=== PATIENT | female | born 1945 | race Two or more races ===

== ENCOUNTER 2021-09-26 13:55 | Inpatient (IN) | payer OTHER, MEDICARE ==
[2021-09-26] MEDS ORDERED: FUROSEMIDE 40 MG/4 ML INJECTABLE VIAL ONE ×2 (14:44→15:36)
[2021-09-26 14:48] LABS: BASO % 0.8 % (0-2.0); EOS % 3.7 % (0-4.5); HEMATOCRIT 39.3 % (32.4-45.2); HEMOGLOBIN 12.3 GM/dL (10.7-15.3); LYMPH % 15.8 % (8-40); MCH 22.7 pg (25.7-33.7); MCHC 31.3 g/dl (32.0-36.0); MEAN CELL VOLUME 72.5 fl (80-96); MEAN PLT VOLUME 9.4 fl (7.5-11.1); MONO % 6.3 % (3.8-10.2); NEUT % 73.4 % (42.8-82.8); PLATELET COUNT 245 10^3/uL (134-434); RBC 5.42 M/mm3 (3.60-5.2); RDW 16.3 % (11.6-15.6); WHITE BLOOD COUNT 8.1 K/mm3 (4.0-10.0)
[2021-09-26] MEDS ORDERED: LOSARTAN POTASSIUM 50 MG TABLET PO ONE (14:56)
[2021-09-26 14:58] LABS: ACTIVATED PTT 28.7 SECONDS (25.2-36.5); INR 1.32 (0.83-1.09); PROTHROMBIN TIME (PATIENT) 15.2 SEC (9.7-13.0)
[2021-09-26] MEDS ORDERED: FUROSEMIDE 40 MG/4 ML INJECTABLE VIAL IVPUSH ONE (14:59)
[2021-09-26] MEDS ORDERED: metoPROLOL SUCCINATE 25 MG TAB.SR.24H (FP) PO ONE (14:59)
[2021-09-26 15:12] LABS: CALCIUM 9.1 mg/dL (8.5-10.1)
[2021-09-26 15:13] LABS: ALBUMIN 3.4 g/dl (3.4-5.0); BLOOD UREA NITROGEN 15.7 mg/dL (7-18)
[2021-09-26 15:16] LABS: CREATININE 0.6 mg/dL (0.55-1.3)
[2021-09-26 15:17] LABS: BILIRUBIN,TOTAL 0.9 mg/dL (0.2-1); TOT PROT 6.6 g/dl (6.4-8.2)
[2021-09-26] MEDS ORDERED: LOSARTAN POTASSIUM 50 MG TABLET ONE (15:36)
[2021-09-26] MEDS ORDERED: metoPROLOL SUCCINATE 25 MG TAB.SR.24H (FP) ONE (15:36)
[2021-09-26] MEDS: APIXABAN 5 MG TABLET PO SCH (21:28)
[2021-09-27 03:03] VITALS: BMI 36.9
[2021-09-27 07:46] LABS: HEMATOCRIT 39.2 % (32.4-45.2); HEMOGLOBIN 12.4 GM/dL (10.7-15.3); MCH 22.9 pg (25.7-33.7); MCHC 31.5 g/dl (32.0-36.0); MEAN CELL VOLUME 72.6 fl (80-96); MEAN PLT VOLUME 9.1 fl (7.5-11.1); PLATELET COUNT 249 10^3/uL (134-434); RDW 15.7 % (11.6-15.6)
[2021-09-27 08:08] LABS: CALCIUM 9.2 mg/dL (8.5-10.1)
[2021-09-27 08:09] LABS: ALBUMIN 3.4 g/dl (3.4-5.0); IRON SERUM 31 ug/dL (50-175)
[2021-09-27 08:10] LABS: TOTAL IRON BINDING CAPACITY 410 ug/dL (250-450)
[2021-09-27 08:12] LABS: CREATININE 0.6 mg/dL (0.55-1.3)
[2021-09-27 08:13] LABS: BILIRUBIN,TOTAL 0.9 mg/dL (0.2-1); TOT PROT 6.6 g/dl (6.4-8.2)
[2021-09-27] MEDS: APIXABAN 5 MG TABLET PO SCH ×2 (09:21→21:17)
[2021-09-27] MEDS: LOSARTAN POTASSIUM 50 MG TABLET PO SCH (09:21)
[2021-09-27] MEDS: metoPROLOL SUCCINATE 25 MG TAB.SR.24H (FP) PO SCH (09:21)
[2021-09-27] MEDS: FUROSEMIDE 40 MG/4 ML INJECTABLE VIAL IVPUSH SCH (10:00)
[2021-09-27] MEDS ORDERED: IRON SUCROSE INJECTION 200 MG in SODIUM CHLORIDE 90 ML IVPB ONE (13:15)
[2021-09-27] MEDS ORDERED: FUROSEMIDE 40 MG/4 ML INJECTABLE VIAL IVPUSH ONE ×2 (14:42)
[2021-09-27 17:20] LABS: EPI CELLS 2 /uL (0-25.1); HYALINE CASTS 0 /uL (0-3.1); URINE APPEARANCE CLEAR; URINE BACTERIA 3 /uL (0-1359); URINE BILIRUBIN NEGATIVE (NEGATIVE); URINE COLOR YELLOW; URINE GLUCOSE (UA) NEGATIVE (NEGATIVE); URINE KETONE NEGATIVE (NEGATIVE); URINE LEUK ESTERASE TRACE (NEGATIVE); URINE NITRITE NEGATIVE (NEGATIVE); URINE PROTEIN NEGATIVE (NEGATIVE); URINE RBC 5 /uL (0-23.9); URINE WBC 4 /uL (0-25.8)
[2021-09-27] MEDS: ACETAMINOPHEN 325 MG TABLET (FP) PO PRN (22:51)
[2021-09-28] MEDS: FUROSEMIDE 40 MG/4 ML INJECTABLE VIAL IVPUSH SCH (09:11)
[2021-09-28] MEDS: APIXABAN 5 MG TABLET PO SCH ×2 (09:14→21:15)
[2021-09-28] MEDS: metoPROLOL SUCCINATE 25 MG TAB.SR.24H (FP) PO SCH ×2 (09:14→21:15)
[2021-09-28 09:21] LABS: HEMATOCRIT 38.6 % (32.4-45.2); MCH 22.7 pg (25.7-33.7); MCHC 31.1 g/dl (32.0-36.0); MEAN PLT VOLUME 9.3 fl (7.5-11.1); PLATELET COUNT 251 10^3/uL (134-434); RBC 5.28 M/mm3 (3.60-5.2); RDW 16.2 % (11.6-15.6); WHITE BLOOD COUNT 6.7 K/mm3 (4.0-10.0)
[2021-09-28 09:41] LABS: CALCIUM 8.9 mg/dL (8.5-10.1)
[2021-09-28 09:42] LABS: ALBUMIN 3.3 g/dl (3.4-5.0); BLOOD UREA NITROGEN 11.7 mg/dL (7-18)
[2021-09-28 09:45] LABS: BILIRUBIN,TOTAL 0.7 mg/dL (0.2-1); CREATININE 0.6 mg/dL (0.55-1.3); TOT PROT 6.4 g/dl (6.4-8.2)
[2021-09-28] MEDS: ACETAMINOPHEN 325 MG TABLET (FP) PO PRN ×2 (10:11→20:24)
[2021-09-28] MEDS: LOSARTAN POTASSIUM 50 MG TABLET PO SCH (10:11)
[2021-09-28] MEDS ORDERED: metoPROLOL SUCCINATE 25 MG TAB.SR.24H (FP) PO ONE (10:12)
[2021-09-28] MEDS: DOCUSATE SODIUM 100 MG CAPSULE (FP) PO PRN (12:41)
[2021-09-28] MEDS: ROSUVASTATIN CA 5 MG TABLET PO SCH (21:16)
[2021-09-28] MEDS ORDERED: FUROSEMIDE 40 MG/4 ML INJECTABLE VIAL IVPUSH SCH (22:00)
[2021-09-29] MEDS: DOCUSATE SODIUM 100 MG CAPSULE (FP) PO PRN (06:13)
[2021-09-29] MEDS: FUROSEMIDE 40 MG/4 ML INJECTABLE VIAL IVPUSH SCH ×2 (09:47→15:04)
[2021-09-29] MEDS: metoPROLOL SUCCINATE 25 MG TAB.SR.24H (FP) PO SCH ×2 (09:48→21:00)
[2021-09-29] MEDS: LOSARTAN POTASSIUM 50 MG TABLET PO SCH (09:48)
[2021-09-29] MEDS: APIXABAN 5 MG TABLET PO SCH ×2 (09:48→21:00)
[2021-09-29] MEDS: ROSUVASTATIN CA 5 MG TABLET PO SCH (21:00)
[2021-09-30] MEDS: FUROSEMIDE 40 MG/4 ML INJECTABLE VIAL IVPUSH SCH ×2 (05:52→14:13)
[2021-09-30 08:18] LABS: CREATININE 0.6 mg/dL (0.55-1.3)
[2021-09-30] MEDS: LOSARTAN POTASSIUM 50 MG TABLET PO SCH (09:33)
[2021-09-30] MEDS: metoPROLOL SUCCINATE 25 MG TAB.SR.24H (FP) PO SCH (09:33)
[2021-09-30] MEDS: APIXABAN 5 MG TABLET PO SCH (09:33)
[2021-09-30 15:00] VITALS: BP 102/52; PULSE 74; TEMP 97.2
== END 2021-09-30 18:09 | disposition home or self-care (01) | DRG 291 ==
LOC: JER 13:55 → JERBED 15:10 → J4S 20:10
PROVIDERS: ADMIT Family Medicine; ATTEND Family Medicine
DX: I11.0 Hypertensive heart disease with heart failure (principal); I50.31 Acute diastolic (congestive) heart failure; I31.3 Pericardial effusion (noninflammatory); I48.91 Unspecified atrial fibrillation; E78.00 Pure hypercholesterolemia, unspecified; E87.70 Fluid overload, unspecified; I34.1 Nonrheumatic mitral (valve) prolapse; E78.5 Hyperlipidemia, unspecified; K59.00 Constipation, unspecified
CPT/HCPCS: 36415; 71045-TC-FY; 80048; 80053; 80061; 81003; 82570; 83036; 83540; 83550; 83735; 83880; 84156; 84439; 84443; 84484; 85025; 85027; 85379; 85610; 85730; 93005; 93010; 93306-TC; 93970-TC; 94761; 97116-GP; 97161-GP; 99285-25; C9803-CS; J1756; U0003; U0005

== ENCOUNTER 2024-06-16 20:50 | Emergency (ER) | payer OTHER, MEDICARE ==
[2024-06-16 21:09] VITALS: BP 159/63; PULSE 72; RESP 18; TEMP 97.7; BMI 32.1
[2024-06-16 21:51] LABS: BASO % 0.5 % (0-2.0); EOS % 8.8 % (0-4.5); HEMATOCRIT 36.3 % (32.4-45.2); HEMOGLOBIN 11.5 GM/dL (10.7-15.3); LYMPH % 23.7 % (8-40); MCH 22.6 pg (25.7-33.7); MCHC 31.6 g/dl (32.0-36.0); MEAN CELL VOLUME 71.6 fl (80-96); MEAN PLT VOLUME 8.7 fl (7.5-11.1); MONO % 5.7 % (3.8-10.2); NEUT % 61.3 % (42.8-82.8); PLATELET COUNT 259 10^3/uL (134-434); RBC 5.08 M/mm3 (3.60-5.2); RDW 16.5 % (11.6-15.6); WHITE BLOOD COUNT 8.8 K/mm3 (4.0-10.0)
[2024-06-16 21:53] LABS: URINE APPEARANCE CLEAR; URINE BILIRUBIN NEGATIVE (NEGATIVE); URINE COLOR YELLOW; URINE GLUCOSE (UA) NEGATIVE (NEGATIVE); URINE KETONE TRACE (NEGATIVE); URINE LEUK ESTERASE 1+ (NEGATIVE); URINE NITRITE NEGATIVE (NEGATIVE); URINE PROTEIN NEGATIVE (NEGATIVE); URINE UROBILINOGEN 0.2 mg/dL (0.2-1.0)
[2024-06-16 22:05] LABS: POTASSIUM 3.8 mmol/L (3.5-5.1)
[2024-06-16 22:07] LABS: ALBUMIN 3.7 g/dl (3.4-5.0); BLOOD UREA NITROGEN 20.1 mg/dL (7-18); CALCIUM 8.9 mg/dL (8.5-10.1)
[2024-06-16 22:10] LABS: CREATININE 0.8 mg/dL (0.55-1.3)
[2024-06-16 22:12] LABS: BILIRUBIN,TOTAL 0.4 mg/dL (0.2-1); TOT PROT 7.1 g/dl (6.4-8.2)
[2024-06-16 22:23] LABS: EPI CELLS 11.3 /uL (0-25.1); HYALINE CASTS 3.01 /uL (0-3.1); URINE BACTERIA 6.6 /uL (0-1359); URINE RBC 17.2 /uL (0-23.9); URINE WBC 26.6 /uL (0-25.8)
== END 2024-06-16 22:02 | disposition home or self-care (01) ==
LOC: JER 20:50
DX: R10.32 Left lower quadrant pain (principal)
CPT/HCPCS: 36415; 74176-TC; 80053; 81003; 84484; 85025; 87086; 99285-25